=== PATIENT | female | born 1965 | race Caucasian/White ===

== ENCOUNTER 2017-09-11 12:18 | Outpatient (CLI) | payer OTHER ==
[2017-09-11 13:18] LABS: eGFR (African) > 60; eGFR (Non-African) 39
== END 2017-09-11 12:30 ==
LOC: LAB 12:18
PROVIDERS: ATTEND Family Medicine
DX: E78.5 Hyperlipidemia, unspecified (principal)
CPT/HCPCS: 36415; 80053; 80061